=== PATIENT | male | born 1995 | race African-American/Black ===

== ENCOUNTER 2021-01-17 19:35 | Emergency (ER) | payer SELFPAY ==
[2021-01-17 19:40] VITALS: BP 129/74; PULSE 82; RESP 20; TEMP 36.4; O2SAT 98
--- NOTE | 2021-01-17 20:01 | ED.MALEGU ---
HPI - Male Genitourinary General Chief complaint: Urogenital-Male Stated complaint: STI check Source: patient Mode of arrival: ambulatory Limitations: no limitations History of Present Illness HPI Narrative: This is a 25-year-old gentleman that presents with some currently no symptoms no penile discharge no dysuria no hematuria no fever or chills no abdominal pain, is worried about episode of unprotected sex and wanted STD check, because of STD exposure. Related Data Home Medications Medication Instructions Recorded Confirmed No Home Medications 01/17/21 01/17/21 Allergies Allergy/AdvReac Type Severity Reaction Status Date / Time No Known Allergies Allergy Unverified 06/07/16 02:44 Review of Systems Review of Systems: All systems reviewed & are unremarkable except as noted in HPI and below PMFSH Past Medical History Medical History Patient denies medical problems Exam Const: General: no acute distress HENMT: Head: normal to inspection Eyes: Conjunctivae: conjunctivae normal Pupils: Equal, round and reactive pupils present Neck: Neck: normal visual inspection Chest: Chest palpation & inspection: normal inspection of the chest GI: GI Palp: Yes Soft to palpation Percussion: Yes normal to percussion Back/Spine/Pelvis: Back: no CVA tenderness Skin: General skin exam: normal color Rashes: no rashes Neuro: General: patient oriented x3 and moves all extremities Extrem: General: normal to inspection and no pedal edema Course Course Emergency Course: patient received ceftriaxone and p.o. azithromycin. Vital Signs Vital signs: Vital Signs Temperature 36.4 C L 01/17/21 19:40 Pulse Rate 82 01/17/21 19:40 Respiratory Rate 20 01/17/21 19:40 Blood Pressure 129/74 01/17/21 19:40 Pulse Oximetry 98 01/17/21 19:40 Temperature 36.4 C L 01/17/21 19:40 Pulse Rate 82 01/17/21 19:40 Respiratory Rate 20 01/17/21 19:40 Blood Pressure 129/74 01/17/21 19:40 Pulse Oximetry 98 01/17/21 19:40 Critical Care Time Critical Care Time Critical Care Time: No Discharge Plan Discharge Clinical Impression: Possible exposure to STD Patient Disposition: Home, Self-Care Condition: Stable Instructions: Antibiotic Form, Safe Sex Practices (ED), Sexually Transmitted Diseases (ED) Additional Instructions: Advised to follow up with primary care physician for results of tests. Prescriptions: No Action No Home Medications RF: 0 Follow-up/Referrals: Chandrakant,Mirian Handy MD [Primary Care Provider] - Time of Disposition: 20:04
[2021-01-17] MEDS: AZITHROMYCIN 250 MG TABLET 1000 MG PO (20:03)
[2021-01-17] MEDS: cefTRIAXone 1 GM VIAL IM (20:03)
[2021-01-17 20:08] VITALS: BP 129/74; PULSE 82; RESP 20; TEMP 36.4; O2SAT 98
[2021-01-17 20:30] LABS: Add Urine Microscopic? NO; Appearance Urine Clear (Clear); Bilirubin Urine Negative (Negative); Blood Urine Negative (Negative); Color Urine Light Yellow (Yellow); Glucose Urine UA Negative (Negative); Ketones Urine Negative (Negative); Leukocyte Esterase Ur Negative (Negative); Nitrate Urine Negative (Negative); Protein Urine Negative (Negative); pH Urine 7.5 (5.0-8.0)
[2021-01-17 21:08] LABS: HIV 1 P24 AG Negative (Negative); HIV 1/2 AB Negative (Negative)
[2021-01-21 14:12] LABS: RPR Screen Non-Reactive (Non-Reactive)
== END 2021-01-17 20:29 | disposition home or self-care (01) ==
PROVIDERS: Emergency Provider Emergency Medicine; PCP Family Medicine
DX: Z04.89 Encounter for examination and observation for other specified reasons (principal)
CPT/HCPCS: 36415; 81003; 86592; 86703; 87491; 87591; 96372; 99283; A9270; J0696

== ENCOUNTER 2021-02-08 07:54 | Emergency (ER) | payer SELFPAY ==
--- NOTE | 2021-02-08 08:19 | ED.EXTPRO ---
HPI - Extremity Problem General Chief complaint: Extremity Injury, Lower Stated complaint: pain in L foot Time Seen by Provider: 02/08/21 08:19 Source: patient Mode of arrival: wheelchair Limitations: no limitations History of Present Illness HPI Narrative: Previously well 25-year-old man comes in today complaining of pain in the bottom of his left foot which has been present since July. Patient states that he works at [employer] and spends a lot of time on his feet. He states the pain gets worse at nighttime and is worse when he wakes up in the morning and starts walking. He denies any numbness or tingling nor has he had any recent or remote injury. No history of foot surgery. MD Complaint: extremity pain Onset (ago): month(s) (7) Pain Consistency: constant Location: right and lower extremity Quality: sharp Radiation: none Exacerbating factors: weight bearing and palpation Associated symptoms: denies other symptoms Related Data Allergies Allergy/AdvReac Type Severity Reaction Status Date / Time No Known Allergies Allergy Verified 02/08/21 08:19 Review of Systems Review of Systems: All systems reviewed & are unremarkable except as noted in HPI and below Constitutional: Constitutional: Denies chills and Denies fever(s) ENT: Denies nasal congestion and Denies sore throat Cardiovascular: Cardiovascular: Denies chest pain and Denies radiating jaw, neck or arm pain Respiratory: Respiratory: Denies cough and Denies dyspnea Musculoskeletal: Musculoskeletal: Denies back pain, Denies arthralgias and Denies joint swelling Integumentary/Breasts: Skin/Breast: Denies pruritus, Denies erythema and Denies rash Neurologic: Denies vertigo, Denies dizziness, Denies syncope, Denies focal weakness and Denies numbness Hematologic/Lymphatic: Hematologic/Lymphatic: Denies easy bleeding and Denies easy bruising Allergic/Immunologic: Allergic/Immunologic: Denies lip swelling and Denies throat swelling PMFSH Past Medical History Medical History Patient denies medical problems Social History Social History (Updated 02/08/21 @ 08:31 by Harley Theodore MD) Smoking status: Never smoker Substance use: never Exam Const: General: healthy appearing, no acute distress and alert Orientation/consciousness: patient oriented x3 Limitations: no limitations Resp: Effort & Inspection: normal respiratory effort and not labored Auscultation: clear to auscultation bilaterally, no rales, no rhonchi and no wheezes Cardio: Rate: regular rate Rhythm: regular rhythm Heart sounds: no murmurs Skin: General skin exam: No normal color, jaundice and pallor Rashes: rash noted Neuro: General: patient oriented x3, moves all extremities and no focal motor deficits Speech: normal speech Gait exam (Neuro): Normal gait present Extrem: General: normal to inspection and no clubbing, cyanosis or edema Other: Tenderness to palpation just distal to the calcaneus the plantar left foot. There is no swelling, and there is no erythema, induration, lesions, or tenderness elsewhere in the foot or ankle. Normal range of motion. Psych: Appearance: grossly normal and well kempt Mental Status: mental status grossly normal Affect: normal affect Attitude: cooperative Thought content: Yes Normal thought content present Discharge Plan Discharge Clinical Impression: Plantar fasciitis of left foot Patient Disposition: Home, Self-Care Condition: Stable Instructions: Plantar Fasciitis (ED), Plantar Fasciitis Exercises (ED) Additional Instructions: Ice after work. Anti-inflammatories daily. Follow up with her doctor if her symptoms do not improve over the next 2 weeks or you develop new concerning symptoms. Prescriptions: New acetaminophen-codeine 300-30 mg tablet 1 tablet PO Q6H PRN (Reason: pain) Qty: 15 RF: 0 Follow-up/Referrals: UNKNOWN,DOCTOR [Primary Care Provider] - S
[2021-02-08 08:20] VITALS: BP 107/75; PULSE 81; RESP 17; TEMP 36.6; O2SAT 97
[2021-02-08 08:52] VITALS: BP 112/76; PULSE 67; RESP 16; O2SAT 98
== END 2021-02-08 08:57 | disposition home or self-care (01) ==
PROVIDERS: Emergency Provider Emergency Medicine
DX: M72.2 Plantar fascial fibromatosis (principal)
CPT/HCPCS: 99283

== ENCOUNTER 2021-02-13 09:07 | Outpatient (CLI) | payer SELFPAY ==
--- NOTE | ~2021-02-13 | XR_ITS ---
XR foot LT min 3V DATE: 02/13/2021 09:25 INDICATION: Plantar pain for 2 months TECHNIQUE: 4 views COMPARISON: None FINDINGS: No fracture or dislocation, periosteal reaction or bone destruction. Joint spaces are well preserved. No erosive change. No calcaneal enthesopathy. IMPRESSION: Negative Reviewed, dictated and finalized at location A. IMPRESSION: Negative
== END 2021-02-13 09:08 | disposition home or self-care (01) ==
LOC: CHSIMG 09:09
PROVIDERS: PCP Family Medicine; Visit Provider Family Medicine
DX: M72.2 Plantar fascial fibromatosis (principal)
CPT/HCPCS: 73630

== ENCOUNTER 2023-08-07 13:04 | Emergency (ER) | payer MEDICAID, SELFPAY ==
--- NOTE | ~2023-08-07 | XR_ITS ---
EXAMINATION: XR ankle RT min 3V DATE: 08/07/2023 13:45 INDICATION: Right ankle injury. TECHNIQUE: 4 views of right ankle were obtained. COMPARISON: None. FINDINGS: Bone alignment is normal. No fracture. Joint spaces are normal. IMPRESSION: 1. Normal right ankle. Reviewed, dictated and finalized at location A. IMPRESSION: 1. Normal right ankle.
--- NOTE | ~2023-08-07 | XR_ITS ---
EXAMINATION: XR foot RT min 3V DATE: 08/07/2023 13:45 INDICATION: Right foot injury. TECHNIQUE: 4 views of right foot were obtained. COMPARISON: None. FINDINGS: Bone alignment is normal. No fracture. There is mild osteoarthritis of first metatarsophala ngeal joint. IMPRESSION: 1. Mild osteoarthritis of first metatarsophalangeal joint. Reviewed, dictated and finalized at location A.
[2023-08-07 13:17] VITALS: BP 142/68; PULSE 80; RESP 18; TEMP 36.7; O2SAT 100
[2023-08-07 13:30] VITALS: BP 142/68; PULSE 80; RESP 18; TEMP 36.7; O2SAT 100
--- NOTE | 2023-08-07 13:35 | ED.LOWEXIN ---
HPI - Extremity Injury (Lower) General Chief Complaint: Extremity Injury, Lower Stated Complaint: right ankle injury Time Seen by Provider: 08/07/23 13:35 Source: patient, RN notes reviewed and old records reviewed Mode of arrival: ambulatory Limitations: no limitations History of Present Illness HPI Narrative: 28 year old male who presents to [facility] care with complaints of standing on bucket fell off twisting his right foot and ankle inward. Patient reports that he has pain to the lateral aspect of his ankle and also foot with some swelling present. Patient reports that he has increased discomfort with ambulation and weight bearing. Patient has strong right pedal pulse. He reports that he has taken some Ibuprofen for his discomfort. MD complaint: ankle injury and foot injury Onset (ago): day(s) (1) Type of Injury: other (twisted foot inward) Place: work Severity scale (1-10): 6 Treatments prior to arrival: NSAIDS Related Data Allergies Allergy/AdvReac Type Severity Reaction Status Date / Time No Known Allergies Allergy Verified 08/07/23 13:10 Review of Systems Review of Systems: CONSTITUTIONAL: Denies fever, chills, or sweats. EYES: Denies visual changes, redness, or discharge. ENT: Denies rhinorrhea, congestion, sore throat, or otalgia. CARDIOVASCULAR: Denies chest pain, palpitations, or edema. RESPIRATORY: Denies cough or dyspnea. GASTROINTESTINAL: Denies abdominal pain, nausea, vomiting, or diarrhea. GENITOURINARY: Denies dysuria or hematuria. SKIN: Denies rash or itching. MUSCULOSKELETAL: Denies back pain,positive for right lateral and foot pain, or myalgia. NEUROLOGIC: Denies headache, numbness, or weakness. PSYCHIATRIC: Denies anxiety or depression. All systems reviewed & are unremarkable except as noted in HPI and below PMFSH Past Medical History Medical History Patient denies medical problems Surgical History Surgical History No history of previous surgery Social History Social History Smoking status: Never smoker Substance use: never Comments At time of signature, agree with nursing past medical, surgical, social and family history. There is no relevant family history pertinent to the presenting complaint Exam Narrative: GENERAL: Well-appearing, well-nourished, and in no acute distress. HEAD: Normocephalic, atraumatic. EYES: PERRLA and EOMI. ENT: Nares clear, no rhinorrhea or epistaxis. Mucous membranes moist. NECK: Supple. no lymphadenopathy CHEST: Clear to auscultation. No respiratory distress.SAO2 100% on room air HEART: Regular rate and rhythm. No murmur heard. Normal peripheral pulses. ABDOMEN: Soft, nontender, nondistended, normal active bowel sounds. EXTREMITIES: Normal range of motion. Some moderated edema noted to the lateral ankle and lateral foot, is able to flex and extend toes with no difficulty. Patient has strong right pedal pulse and denies any tingling or numbness to his right foot, nail beds have brisk capillary refill of right foot. SKIN: Warm, dry, no rash. NEURO: No focal deficits. Alert and oriented x3. Course Course Emergency Course: Patient is aware of diagnosis, understands and agrees to treatment plan.? Anticipatory guidance given.? Patient agrees to follow-up as directed and is aware of reasons to seek care at the emergency department. Portions of this record may have been created with voice recognition software Level of Care: Express Care Visit Vital Signs Vital signs: Vital Signs Temperature 36.7 C 08/07/23 13:17 Pulse Rate 80 08/07/23 13:17 Respiratory Rate 18 08/07/23 13:17 Blood Pressure 142/68 H 08/07/23 13:17 Pulse Oximetry 100 08/07/23 13:17 Oxygen Delivery Room Air 08/07/23 13:17 Temperature 36.7 C 08/07/23 13:30 Pulse Rate 80 08/07/23 13:30 Respiratory
== END 2023-08-07 14:08 | disposition home or self-care (01) ==
PROVIDERS: Emergency Provider Registered Nurse
DX: S93.401A Sprain of unspecified ligament of right ankle, initial encounter (principal); S96.911A Strain of unspecified muscle and tendon at ankle and foot level, right foot, initial encounter; W17.89XA Other fall from one level to another, initial encounter; S93.601A Unspecified sprain of right foot, initial encounter
CPT/HCPCS: 73610; 73630; 99213; G0463